=== PATIENT | male | born 1975 | race American Indian/Alaskan Native ===

== ENCOUNTER 2021-03-06 09:48 | Outpatient (CLI) | payer OTHER ==
--- NOTE | 2021-03-06 12:55 | Ultrasound Report ---
Scrotal Ultrasound HISTORY: UNILATERAL TESTICULAR PAIN/SWELLING. TECHNIQUE: Grayscale and color imaging performed. COMPARISON: None FINDINGS: The testicles are normal in size with preserved blood flow. There is a cystic-appearing str ucture measuring 4 mm along the mid to inferior region of the right testicle. There are also bilatera l hydroceles, trace on the left and moderate on the right. There appears to be a hernia extending from the right inguinal region nearly to the level of the scro christiana sac. There is no peristalsis to suggest internal bowel but there is at least internal fat. IMPRESSION: 1. Findings suggestive of a right inguinal hernia with moderate size right-sided hydrocele. 2. Simple cyst in the right testicle. Testicles otherwise appear normal. 3. Trace left-sided hydrocele Signer Name: Jorden Iniguez MD Signed: 03/06/2021 12:49 PM Workstation Name: [id number]
== END 2021-03-06 09:49 | disposition home or self-care (01) ==
LOC: US 09:48
PROVIDERS: ATTEND Internal Medicine
DX: N43.3 Hydrocele, unspecified (principal); N44.2 Benign cyst of testis; R60.0 Localized edema
CPT/HCPCS: 93975